=== PATIENT | male | born 1940 | race Hispanic/Latino ===

== ENCOUNTER 2017-12-14 13:44 | Outpatient (CLI) | payer MEDICARE, OTHER ==
--- NOTE | 2017-12-15 08:32 | XRay Report ---
XRAY LEFT KNEE FOUR VIEWS: 12/14/17 CLINICAL: History of knee replacement. No comparison. 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 No apparent loosening. Mild osteopenia.No joint effusion.Normal soft tissues. IMPRESSION: Status post total joint replacement.
== END 2017-12-14 13:45 | disposition home or self-care (01) ==
LOC: SPVIMAG 13:44
PROVIDERS: ATTEND Orthopaedic Surgery Sports Medicine
DX: Z47.1 Aftercare following joint replacement surgery (principal); Z96.652 Presence of left artificial knee joint